=== PATIENT | female | born 1995 | race Caucasian/White ===

== ENCOUNTER 2017-08-31 08:08 | Inpatient (IN) | payer OTHER ==
--- NOTE | 2017-08-31 08:42 | PTEDU ---
Patient Name: MAGUE JANE MAGUE JANE selected video: Never Ever Shake a Baby to view on 08/31/2017 at 8:41:32 AM from [facility] [id number]
--- NOTE | 2017-08-31 08:45 | PTEDU ---
Patient Name: MAGUE JANE MAGUE JANE selected video: BBOB: Nurturing Your Gorgeous &Growing Baby by to view on 08/31/2017 at 8:44:12 AM [id number]
[2017-08-31] MEDS ORDERED: Misoprostol TAB* 100 MCG PO ONE (08:59)
[2017-08-31] MEDS ORDERED: Albuterol HFA INHALER* 8 gm MDI INH PRN (09:02)
--- NOTE | 2017-08-31 09:08 | HP ---
General Information - Reason for Visit Postdates induction of labor - General Information Maternal Age: 21 Grav: 3 Para: 0 SAB: 0 IEA: 0 Estimated Due Date: 08/23/17 Determined By: Early Ultrasound Gestational Age in Weeks/Days: 41-17 Maternal Blood Type and Rh: A Positive - Results this Serology/RPR Result: Non-Reactive Rubella Result: Immune HBsAg Result: Negative HIV Result: Negative GBS Culture Result: Negative Past Medical History Delivery History: See Records Delivery History Comment: 03/2011 IEA 09/2014 IEA Pertinent Past Medical History: See Records Past Medical History Comment: Hx asthma, mild exercise induced. Uses rescue inhaler PRN Pertinent Past Surgical History: None Pertinent Family History: See Records Family History Comment: Father: HTN PGF: , cancer MGM: asthma, COPD MGF: , unknown - Antepartal Records Antepartal Records: Reviewed, Uncomplicated Review of Systems Constitutional: Comfortable CV Complaint: No Respiratory: Shortness of Breath: No Gastrointestinal: No Nausea/Vomiting, Normal Bowel Movement Genitourinary: No Dysuria, No Bleeding, No Leaking Fluid Musculoskeletal: No Complaint Neurological: No Headache, No Visual Changes Movement: Normal Exam Allergies/Adverse Reactions: Allergies No Known Allergies Allergy (Verified 08/09/17 03:03) BP: 125/86 HR 87 T 98.4 RR 20 SpO2 98% on RA - Measurements Height: 4 ft 10 in Weight: 183 lb Body Mass Index (BMI): 38.2 Pre- Weight: 170 lb - Exam Breast: Breast Exam Deferred CVA: No CVA Tenderness Extremities: Edema - 1+ pedal edema bilaterally Heart: Normal Rhythm/Heart Sounds HEENT: No Significant Findings Lungs: Clear Bilaterally Rectal: Rectal Exam Deferred Reflexes: DTR 2+ Thyroid: No Thyromegaly - Abdominal Exam Abdomen Exam: Non-Tender - Ultrasound/Biophysical Profile Ultrasound Status: Not Done Targeted Exam Findings See L&D Outpatient Visit Provider Note for Findings: N/A Estimated Weight: 7.5lbs by Anne Cervical Exam: 3cm Effacement: 70% Station: -1 Presenting Part: Vertex Sterile Speculum Exam: not done Bleeding/Discharge: None EFM Findings - External Monitor Findings Baseline Heart Rate: 125 External Monitor Findings: Accelerations Present, No Pattern of Variable or Late Decelerations, Variability Moderate, Baseline Stable External Monitor Findings Comment: No evidence of metabolic acidemia Contractions: None Assessment/Plan - Assessment IUP at 41-1/7 weeks her for postdates induction of labor. Bishops Score 6 - Obstetrical Risk Factors Obstetrical Risk Factors: Post-Dates - Plan Plan: Induction Plan Comment: PARQ Oral misoprostol vs. IV pitocin. All ?s answered. Pt would like to start with oral misoprostol. May want pain medication in active labor so consents to IV placement now - Date/Time of Admission Date of Admission: 08/31/17 Time of Admission: 08:10
--- NOTE | 2017-08-31 09:14 | PTEDU ---
Patient Name: MAGUE JANE MAGUE JANE selected video: Follow Me Mum: The [facility] to Successful to view on 2017 at 9:14:11 AM from [id number]
[2017-08-31] MEDS ORDERED: Misoprostol TAB* 100 MCG ONE (09:18)
[2017-08-31 09:58] LABS: ABS Basophils 0 10^3/ul (0-0.2); ABS Eosinophils 0.1 10^3/ul (0-0.6); ABS Lymphocytes 2.4 10^3/ul (1.0-4.8); ABS Monocytes 0.8 10^3/ul (0-0.8); ABS Neutrophils 8.4 10^3/ul (1.5-7.7); ABS Nucleated RBC 0 10^3/ul; Eosinophil % 0.8 % (0-6); Hematocrit 37 % (35-47); Lymphocyte % 20.6 % (25-47); Mean Corpuscular HGB Conc 33 g/dl (31-36); Mean Corpuscular Hemoglobin 28 pg (27-31); Mean Corpuscular Volume 86 fL (80-97); Mean Platelet Volume 9.8 um3 (7.4-10.4); Nucleated Red Blood Cells % 0.1; Platelet Count 214 10^3/ul (150-450); Red Blood Count 4.25 10^6/ul (4.00-5.40); Red Cell Distribution Width 15 % (10.5-15); White Blood Count 11.8 10^3/ul (3.5-10.8)
--- NOTE | 2017-08-31 13:19 | PN ---
Progress Note - Progress Note Date of Service: 08/31/17 Note: S: Pt reports only rare menstrual like cramping. No strong UCs. No LOF. Reports active FM. O: BP 116/68 HR 85 T 98.2 RR 20 FHT 145bpm by intermittent doptones. No decels UCs mild, irregular. Pt to go on monitor now VE: 3-4/80%/vtx -1, intact A: IUP at 41-1/7 here for postdates IOL No evidence of metabolic acidemia P: Discussed repeat dose of cytotec vs. IV pitocin. Pt prefers trial of IV pitocin at this time. Plan to start at 6mu/min and increased by 2mu/min q 30 min per low dose protocol. Consider AROM with consistent UC pattern. Pt to request pain mgmt PRN.
[2017-08-31] MEDS ORDERED: Oxytocin in LR* 20 UNITS/1,000 ML BAG IVPB ONE (13:27)
[2017-08-31] MEDS ORDERED: Oxytocin in LR* 20 UNITS/1,000 ML BAG IVPB SCH (13:30)
--- NOTE | 2017-08-31 14:29 | PN ---
Progress Note - Progress Note Date of Service: 08/31/17 Note: S: Pt reports mild UCs, feeling more crampy than uncomfortable. O: VSS, afebrile FHT: 145bpm. Moderate variability. +Accels. No decels UCs q 2-4 VE: 3-4/80%/vtx -1 AROM clear fluid A: Postdates IOL at 41-1/7 No evidence of metabolic acidemia P: Continue IV pitocin
[2017-08-31] MEDS ORDERED: OBEPIDURAL* 250 ML EPIDURAL ONE (15:35)
[2017-08-31] MEDS ORDERED: Sodium Citrate/Citric Acid* 15 ML UDC PO PRN (16:19)
[2017-08-31] MEDS ORDERED: Phenylephrine IV* 40 MCG/ML 10 ML SYRINGE IV PUSH PRN ×2 (16:19)
[2017-08-31] MEDS ORDERED: Famotidine TAB* 20 MG PO PRN (16:19)
[2017-08-31] MEDS ORDERED: OBEPIDURAL* 250 ML EPIDURAL SCH (17:00)
--- NOTE | 2017-08-31 17:38 | PN ---
Progress Note - Progress Note Date of Service: 08/31/17 Note: S: Pt comfortable s/p CEI O: BP 111/77 HR 87 RR 20 T 99.2 FHT: 135bpm. Moderate variability. +Accels. Occ early type decel and variable with UCs. Immediately after CEI placement decels down to 80bpm resolved with IV fluids, maternal position changes, IV phenylephrine. UCs 2-4 VE: 5-6cm/80%/vtx -1, clear fluid A: IUP at 41-1/7 postdates IOL Category II FHT. Doubt metabolic acidemia. Variability maintained P: Close monitoring of maternal/ status. Continue IV pitocin. Encouraged rest.
[2017-08-31] MEDS ORDERED: ceFOXitin 2 GM IVPREMIX* 2 GM/50 ML BAG IVPB ONE (19:05)
[2017-08-31] MEDS ORDERED: ceFOXitin 2 GM IVPREMIX* 2 GM/50 ML BAG ONE (19:07)
--- NOTE | 2017-08-31 19:09 | PN ---
Progress Note - Progress Note Date of Service: 08/31/17 Note: S: Paged to bedside for FHT decel down to the 70's. Pt on right side. O2 by mask. IV fluids running. IV pitocin off O: VSS, afebrile FHT: Baseline 140bpm. Decel down to 70bpm x 6 min. Recovered. Minimal to moderate variability. Persistent late decels with UCs UCs q 4-5 min with IV pitocin off VE: unchanged. FSE applied A: Category II FHT remote from delivery P: Counseled for pLTCS and all questions answered. Dr. Hill, Dr. Montano and neonatology paged. Staff to prep OR.
[2017-08-31] MEDS ORDERED: Dexamethasone IV* 4 MG/ML 1 ML (4 MG) ONE (19:20)
[2017-08-31] MEDS ORDERED: OXYTOCIN* 10 UNITS/ML 1 ML VIAL ONE (19:20)
[2017-08-31] MEDS ORDERED: Ondansetron INJ* 2 MG/ML VIAL ONE (19:20)
[2017-08-31] MEDS ORDERED: Morphine PF AMP (0.5MG/ML)* 5 MG/10 ML AMP ONE (19:51)
[2017-08-31] MEDS ORDERED: Phenylephrine IV* 40 MCG/ML 10 ML SYRINGE ONE (20:02)
[2017-08-31] MEDS ORDERED: Acetaminophen IV 1GM/100ML * 1,000 MG/100 ML VIAL IVPB ONE (20:04)
[2017-08-31] MEDS ORDERED: oxyCODONE TAB* 5 MG TAB PO PRN ×2 (20:04→20:23)
[2017-08-31] MEDS ORDERED: Naloxone* 0.4 MG/ML 1 ML VIAL IV PRN ×2 (20:04→20:23)
[2017-08-31] MEDS ORDERED: PROCHLORPERAZINE INJ 5 MG/ML 2 ML VIAL IV PRN (20:04)
[2017-08-31] MEDS ORDERED: fentaNYL* 50 MCG/ML 2 ML VIAL (100 MCG VIAL) IV PRN (20:04)
[2017-08-31] MEDS ORDERED: Nalbuphine* 10 MG/ML 1 ML VIAL IV PRN (20:23)
[2017-08-31] MEDS ORDERED: Ondansetron INJ* 2 MG/ML VIAL IV PRN (20:23)
[2017-08-31] MEDS ORDERED: DiMENhydriNATE IV* 50 MG/ML VIAL IV PUSH PRN (20:23)
[2017-08-31] MEDS ORDERED: Scopolamine 1.5 mg* PATCH TRANSDERM PRN (20:23)
[2017-08-31] MEDS ORDERED: Ketorolac INJ* 30 MG/ML 1 ML VIAL IV ONE (21:00)
[2017-09-01] MEDS: Ketorolac INJ* 30 MG/ML 1 ML VIAL IV SCH ×3 (03:14→13:36)
[2017-09-01] MEDS ORDERED: Phenylephrine INJ* 10 MG/ML 1 ML VIAL (10 MG) ONE (03:21)
[2017-09-01 07:20] LABS: ABS Basophils 0.1 10^3/ul (0-0.2); ABS Eosinophils 0 10^3/ul (0-0.6); ABS Lymphocytes 1.5 10^3/ul (1.0-4.8); ABS Monocytes 1.1 10^3/ul (0-0.8); ABS Neutrophils 15.8 10^3/ul (1.5-7.7); ABS Nucleated RBC 0 10^3/ul; Eosinophil % 0 % (0-6); Hematocrit 31 % (35-47); Hemoglobin 10.5 g/dl (12.0-16.0); Lymphocyte % 8.3 % (25-47); Mean Corpuscular HGB Conc 34 g/dl (31-36); Mean Corpuscular Hemoglobin 29 pg (27-31); Mean Corpuscular Volume 86 fL (80-97); Mean Platelet Volume 9.5 um3 (7.4-10.4); Nucleated Red Blood Cells % 0; Platelet Count 200 10^3/ul (150-450); Red Blood Count 3.62 10^6/ul (4.00-5.40); Red Cell Distribution Width 15 % (10.5-15); White Blood Count 18.5 10^3/ul (3.5-10.8)
[2017-09-01] MEDS ORDERED: Witch Hazel PAD* JAR TOPICAL PRN (07:30)
[2017-09-01] MEDS ORDERED: Dibucaine 1% 28.35 GM TUBE PR PRN (07:30)
[2017-09-01] MEDS ORDERED: Acetaminophen TAB* 325 MG PO PRN (07:30)
[2017-09-01] MEDS ORDERED: Glycerin ADULT SUPP PR PRN (07:30)
[2017-09-01] MEDS: Docusate CAP* 100 MG PO SCH ×3 (08:43→20:41)
[2017-09-01] MEDS: Simethicone TAB* 80 MG TAB.CHEW PO SCH ×4 (08:43→20:41)
--- NOTE | 2017-09-01 10:28 | OP ---
DATE OF OPERATION: 08/31/17 - ROOM #104 DATE OF : [birth year] SURGEON: Erlinda Hill MD RECYCLABLE PRODUCTS SORTER: Patsy Mena CNM PRE-OP DIAGNOSIS: Category 2 heart tracing, 41-1/7 weeks. POST-OP DIAGNOSIS: Category 2 heart tracing, 41-1/7 weeks. OPERATIVE PROCEDURE: Primary low transverse section. ESTIMATED BLOOD LOSS: 600. URINE OUTPUT: 250 cc of clear yellow urine. FLUIDS: 2000 cc of crystalloid. FINDINGS: Revealed a vertex male with Apgars 9 at 1 minute, 9 at 5 minutes, weight was 7 pounds 8 ounces. Normal-appearing tubes and ovaries bilaterally. Normal-appearing placenta, 3-vessel cord, spontaneous delivery, intact uterine cavity without evidence of retained membranes of profound tissue. COMPLICATIONS: None apparent. DISPOSITION: Stable to recovery room. DESCRIPTION OF PROCEDURE: The patient was placed in dorsal lithotomy position. The abdomen was prepped and draped in a sterile standard fashion. The anesthesia was tested to appropriate level. Incision was made 2 fingerbreadths above the pubic symphysis. This was carried down through the fascia. Fascia was scoured in the midline and extended bilaterally using curved Ramirez scissors. The peritoneum was then entered bluntly and peritoneal incision was extended bluntly. The bladder blade was inserted. Lower uterine segment was identified, tented up with an Allis. Incision was made with scalpel, this was carried down through membranes. The incision was extended laterally and superiorly using bandage scissors. Clear fluid was noted. The was delivered vertex, no nuchal cord. No meconium. The cord was allowed to pulse for 60 seconds before clamping. The cord was doubly clamped, cut and the was handed off to awaiting wire mesh knitter. Appropriate cord blood was then obtained. The placenta was allowed to deliver spontaneously. Uterus was exteriorized, wrapped in warm moist laparotomy sponge. The uterine cavity was explored and noted to be free of any membranes or placental tissue. Uterine incision itself was reapproximated in two layers, first layer running locked, second layer running imbricated 0 Vicryl. The uterus was returned intraabdominally. Colic gutters were lavaged. Hemostasis was assured at the hysterotomy site. The peritoneum was reapproximated using 3-0 Vicryl in a running fashion. Subfascial area was visualized and noted to be hemostatic. Fascia was reapproximated using 0 Vicryl x2 in a running fashion. Subcu was lavaged, hemostasis assured, Bovie coagulation, and the subcuticular Camper's fascia was reapproximated using 3-0 Vicryl in an interrupted fashion for complete reapproximation and closure of the space. The skin was reapproximated with 4-0 Monocryl in a subcuticular fashion. Mastisol and Steri-Strips applied. All sponge, needle, instrument, and blade counts were correct throughout the case. The patient tolerated the procedure well. [id number]/[facility] #: [id number] [facility]ITAL[facility]
[2017-09-01] MEDS ORDERED: oxyCODONE/Acetamin 5/325 MG* TAB PO PRN (12:30)
[2017-09-01] MEDS: Ibuprofen TAB* 600 MG PO PRN ×2 (13:40→20:41)
[2017-09-01] MEDS: oxyCODONE/Acetamin 5/325 MG* TAB PO PRN (20:41)
[2017-09-02] MEDS: oxyCODONE/Acetamin 5/325 MG* TAB PO PRN ×3 (01:15→20:54)
[2017-09-02 07:42] LABS: ABS Basophils 0.1 10^3/ul (0-0.2); ABS Eosinophils 0.2 10^3/ul (0-0.6); ABS Lymphocytes 3.8 10^3/ul (1.0-4.8); ABS Monocytes 0.9 10^3/ul (0-0.8); ABS Nucleated RBC 0 10^3/ul; Eosinophil % 1.2 % (0-6); Hematocrit 28 % (35-47); Hemoglobin 9.2 g/dl (12.0-16.0); Lymphocyte % 29.5 % (25-47); Mean Corpuscular HGB Conc 33 g/dl (31-36); Mean Corpuscular Hemoglobin 29 pg (27-31); Mean Corpuscular Volume 86 fL (80-97); Mean Platelet Volume 9.7 um3 (7.4-10.4); Nucleated Red Blood Cells % 0; Platelet Count 179 10^3/ul (150-450); Red Blood Count 3.23 10^6/ul (4.00-5.40); Red Cell Distribution Width 15 % (10.5-15); White Blood Count 12.9 10^3/ul (3.5-10.8)
[2017-09-02] MEDS: Ibuprofen TAB* 600 MG PO PRN ×3 (07:45→20:50)
[2017-09-02] MEDS: Simethicone TAB* 80 MG TAB.CHEW PO SCH ×4 (08:45→20:50)
[2017-09-02] MEDS: Docusate CAP* 100 MG PO SCH ×3 (08:45→20:50)
[2017-09-02] MEDS ORDERED: Ferrous Gluconate TAB* 324 MG TAB PO SCH (09:00)
[2017-09-03] MEDS: Ibuprofen TAB* 600 MG PO PRN ×2 (03:13→09:20)
[2017-09-03] MEDS: oxyCODONE/Acetamin 5/325 MG* TAB PO PRN ×2 (03:13→07:55)
[2017-09-03] MEDS: Simethicone TAB* 80 MG TAB.CHEW PO SCH (07:56)
[2017-09-03] MEDS: Docusate CAP* 100 MG PO SCH (07:56)
[2017-09-03 08:12] VITALS: BP 113/62
[2017-09-03] MEDS ORDERED: Ferrous Gluconate TAB* 324 MG TAB PO SCH (09:00)
[2017-09-03] MEDS ORDERED: Scopolamine PATCH Remove* 1 NOTE MISC PATCH OFF PRN (20:24)
== END 2017-09-03 14:28 | disposition home or self-care (01) | DRG 540 ==
LOC: MCHOBOUT 08:08 → MCHOB 08:11
PROVIDERS: ADMIT Midwife; ATTEND Midwife
PROC: 10D00Z1 Extraction of Products of Conception, Low, Open Approach (ICD-10-PCS; 2017-08-31)
PROC: 4A1HXCZ Monitoring of Products of Conception, Cardiac Rate, External Approach (ICD-10-PCS; 2017-08-31)
PROC: 4A1H7CZ Monitoring of Products of Conception, Cardiac Rate, Via Natural or Artificial Opening (ICD-10-PCS; 2017-08-31)
PROC: 10H073Z Insertion of Monitoring Electrode into Products of Conception, Via Natural or Artificial Opening (ICD-10-PCS; 2017-08-31)
PROC: 10907ZC Drainage of Amniotic Fluid, Therapeutic from Products of Conception, Via Natural or Artificial Opening (ICD-10-PCS; principal; 2017-08-31 19:31)
DX: O48.0 Post-term pregnancy (principal); O99.52 Diseases of the respiratory system complicating childbirth; J45.990 Exercise induced bronchospasm; Z82.49 Family history of ischemic heart disease and other diseases of the circulatory system; Z80.9 Family history of malignant neoplasm, unspecified; Z82.5 Family history of asthma and other chronic lower respiratory diseases; Z3A.41 41 weeks gestation of pregnancy; Z37.0 Single live birth; O90.81 Anemia of the puerperium; O76 Abnormality in fetal heart rate and rhythm complicating labor and delivery; O99.214 Obesity complicating childbirth; Z68.38 Body mass index [BMI] 38.0-38.9, adult
CPT/HCPCS: 36415; 85025; 86850; 86900; 86901; A9270-GY; J0694; J1100; J1885; J2405; J2590; S0191

== ENCOUNTER 2018-06-01 11:23 | Emergency (ER) | payer OTHER ==
[2018-06-01 11:43] VITALS: BP 114/70
--- NOTE | 2018-06-01 11:53 | UC ---
Throat Pain/Nasal Enio HPI - HPI Summary HPI Summary: 22 yo female presents with 2 days of fatigue, body aches, sore throat, dry cough , and runny nose. She has been taking tylenol for her symptoms with mild relief. She is currently her 9month old son. She tells me that her son and her were recently dx'd with the flu and she thinks she may have it. Denies fever, SOB, chest pain, n/v/d/c, abdominal pain - History of Current Complaint Chief Complaint: UCRespiratory Stated Complaint: CONGESTION RASH Time Seen by Provider: 06/01/18 11:53 Hx Obtained From: Patient Hx Last Menstrual Period: 2 months (she states she has irregular periods) Onset/Duration: Sudden Onset Severity: Moderate Pain Intensity: 6 Pain Scale Used: 0-10 Numeric - Allergies/Home Medications Allergies/Adverse Reactions: Allergies Allergy/AdvReac Type Severity Reaction Status Date / Time No Known Allergies Allergy Verified 06/01/18 11:43 PMH/Surg Hx/FS Hx/Imm Hx Respiratory History: Asthma - Surgical History Surgical History: None - Family History Known Family History: Positive: None - Social History Occupation: Employed Full-time Lives: With Family Alcohol Use: None Substance Use Type: None Smoking Status (MU): Never Smoked Tobacco - Immunization History Most Recent Influenza Vaccination: declined Most Recent Tetanus Shot: up to date Most Recent Pneumonia Vaccination: none Review of Systems All Other Systems Reviewed And Are Negative: Yes Constitutional: Positive: Fatigue, Other - Body aches Skin: Positive: Rash - chest Eyes: Positive: Negative ENT: Positive: Sore Throat, Nasal Discharge Respiratory: Positive: Cough Cardiovascular: Positive: Negative Gastrointestinal: Positive: Negative Genitourinary: Positive: Negative Neurovascular: Positive: Negative Neurological: Positive: Negative Psychological: Positive: Negative Physical Exam - Summary Physical Exam Summary: GENERAL: NAD. WDWN. No pain distress. SKIN: No rashes, sores, lesions, or open wounds. HEENT: Head: AT/NC Eyes: EOM intact. Conjunctiva clear without inflammation or discharge. Ears: Hearing grossly normal. TMs intact, no bulging, erythema, or edema. Nose: Nasal mucosa pink and moist. NTTP maxillary and frontal sinus. Throat: Posterior oropharynx without exudates, erythema, or tonsillar enlargement. Uvula midline. NECK: Supple. Nontender. No lymphadenopathy. CHEST: CTAB. No r/r/w. No accessory muscle use. Breathing comfortably and in no distress. CV: RRR. Without m/r/g. Pulses intact. Cap refill <2seconds NEURO: Alert. PSYCH: Age appropriate behavior. Triage Information Reviewed: Yes Vital Signs: Initial Vital Signs Temp 98.4 F 06/01/18 11:40 Pulse 101 06/01/18 11:40 Resp 18 06/01/18 11:40 BP 114/70 06/01/18 11:40 Pulse Ox 99 06/01/18 11:40 Laboratory Tests 06/01/18 12:03 Influenza A (Rapid) Negative Influenza B (Rapid) Negative Vital Signs Reviewed: Yes Throat Pain/Nasal Course/Dx - Course Course Of Treatment: POC flu negative. Suspect viral illness. Advised to continue tylenol/ibuprofen for discomfort and f/u if symptoms do not improve - Differential Dx/Diagnosis Provider Diagnosis: Viral syndrome Discharge - Sign-Out/Discharge Documenting (check all that apply): Patient Departure All imaging exams completed and their final reports reviewed: No Studies - Discharge Plan Condition: Stable Disposition: HOME Patient Education Materials: Viral Syndrome (ED) Forms: *Work Release Referrals: Evan CRUZ,Tres Robles [Primary Care Provider] - Additional Instructions: If you develop a fever, shortness of breath, chest pain, new or worsening symptoms - please call your PCP or go to the ED. 1) Continue tylenol/ibuprofen for your discomfort and be rechecked if your symptoms do not improve - Billing Disposition and Condition Condition: STABLE Disposition: Home
[2018-06-01 12:15] LABS: Influenza A Molecular NEGATIVE (Negative); Influenza B Molecular NEGATIVE (Negative)
== END 2018-06-01 12:19 | disposition home or self-care (01) ==
LOC: UCEAST 11:23
DX: B34.9 Viral infection, unspecified (principal); R21 Rash and other nonspecific skin eruption; J45.909 Unspecified asthma, uncomplicated
CPT/HCPCS: 99211; G0463

== ENCOUNTER 2018-08-05 20:54 | Emergency (ER) | payer SELFPAY ==
--- NOTE | 2018-08-05 20:56 | UC ---
Back Pain HPI - HPI Summary HPI Summary: 22 yo female presents with back pain. She tells me that this morning she bent down to pick something up off the floor and as she was returning to a standing position she felt a pull in her mid back. Has had discomfort in this area since that time that is worse with movement. She has not taken anything OTC for her discomfort. No radiation of pain. No numbness, tingling, saddle anesthesia, loss of bowel/bladder control, or dysuria. - History of Current Complaint Stated Complaint: BACK INJURY Time Seen by Provider: 08/05/18 20:55 Hx Obtained From: Patient Hx Last Menstrual Period: 2 months (she states she has irregular periods) Onset/Duration: Sudden Onset Severity Initially: Moderate Severity Currently: Moderate Pain Intensity: 5 Pain Scale Used: 0-10 Numeric - Allergies/Home Medications Allergies/Adverse Reactions: Allergies Allergy/AdvReac Type Severity Reaction Status Date / Time No Known Allergies Allergy Verified 08/05/18 21:06 PMH/Surg Hx/FS Hx/Imm Hx Respiratory History: Asthma - Surgical History Surgical History: None - Family History Known Family History: Positive: None - Social History Lives: With Family Alcohol Use: None Substance Use Type: None Smoking Status (MU): Never Smoked Tobacco - Immunization History Most Recent Influenza Vaccination: declined Most Recent Tetanus Shot: up to date Most Recent Pneumonia Vaccination: none Review of Systems All Other Systems Reviewed And Are Negative: Yes Constitutional: Positive: Negative Skin: Positive: Negative Respiratory: Positive: Negative Cardiovascular: Positive: Negative Neurovascular: Positive: Negative Musculoskeletal: Positive: Other: - Back pain Neurological: Positive: Negative Psychological: Positive: Negative Physical Exam - Summary Physical Exam Summary: GENERAL: NAD. WDWN. No pain distress. SKIN: No rashes, sores, lesions, or open wounds. NECK: Supple. FROM. Nontender. No lymphadenopathy. CHEST: CTAB. No r/r/w. No accessory muscle use. Breathing comfortably and in no distress. CV: RRR. Without m/r/g. Pulses intact. Cap refill <2seconds MSK: TTP over thoracic paraspinal muscles. Pain reproduced with b/l arm flexion and with flexion of spine. No vertebral tenderness. No lumbar spine tenderness. Strength 5/5 B/L UEs NEURO: Alert. Sensations intact B/L UEs C4-T1. Reflexes intact PSYCH: Age appropriate behavior. Triage Information Reviewed: Yes Vital Signs: Vital Signs: Temp Pulse Resp BP Pulse Ox 98.1 F 97 16 134/67 98 08/05/18 21:01 08/05/18 21:01 08/05/18 21:01 08/05/18 21:01 08/05/18 21:01 Vital Signs Reviewed: Yes Back Pain Course/Dx - Course Course Of Treatment: Suspect muscle strain/spasm of mid back. In the clinic she was given toradol IM for her discomfort and was dispense flexeril to take tonight when she gets home. Rx for flexeril. Advised to rest and apply heat to reduce pain. Practice gentle range of motion to loosen the muscles. - Differential Dx/Diagnosis Provider Diagnosis: Muscle strain of upper back Discharge - Sign-Out/Discharge Documenting (check all that apply): Patient Departure All imaging exams completed and their final reports reviewed: No Studies - Discharge Plan Condition: Stable Disposition: HOME Prescriptions: Cyclobenzaprine TAB* [Flexeril 10 MG TAB*] 10 mg PO TID PRN #15 tab PRN Reason: Pain Patient Education Materials: Muscle Strain (ED), Muscle Spasm (ED) Forms: *Work Release Referrals: Tres Godron PA [Primary Care Provider] - Additional Instructions: If you develop a fever, shortness of breath, chest pain, new or worsening symptoms - please call your PCP or go to the ED immediately. 1) Rest and apply heat to your back to reduce pain 2) Practice gentle range of motion to keep the muscles loose 3) May take tylenol or ibuprofen starting tomorrow as directed for discomfort - Billing Disposition and Condition Condition: STABLE Disposition: Home
[2018-08-05 21:06] VITALS: BP 134/67
[2018-08-05] MEDS ORDERED: Cyclobenzaprine TAB* 10 MG PO ONE (21:13)
[2018-08-05] MEDS ORDERED: Ketorolac INJ* 60 MG/2 ML VIAL IM ONE (21:13)
== END 2018-08-05 21:31 | disposition home or self-care (01) ==
LOC: UCEAST 20:54
DX: S29.012A Strain of muscle and tendon of back wall of thorax, initial encounter (principal); X50.0XXA Overexertion from strenuous movement or load, initial encounter; Y92.9 Unspecified place or not applicable
CPT/HCPCS: 96372; 99212; A9270-GY; G0463; J1885

== ENCOUNTER 2019-03-27 17:25 | Emergency (ER) | payer OTHER ==
[2019-03-27 17:31] VITALS: BP 112/70
[2019-03-27] MEDS ORDERED: Tetracaine 0.5% OPTH.SOL 4 ML* 1 DROP BTL RIGHT EYE ONE (17:57)
[2019-03-27] MEDS ORDERED: Fluorescein Sodium TOPICAL* 1 MG TEST STRIP OPHTHALMIC ONE (17:58)
[2019-03-27] MEDS ORDERED: Erythromycin OPTH OINT* APPLIC OINT RIGHT EYE ONE (18:27)
--- NOTE | 2019-03-27 18:35 | UC ---
Eye Complaint HPI - HPI Summary HPI Summary: THIS AFTERNOON. HER EYE IS WATERING AND SHE HAS PAIN AND FOREIGN BODY SENSATION. DOES NOT WEAR CONTACTS. - History of Current Complaint Chief Complaint: UCEye Stated Complaint: EYE INJURY Time Seen by Provider: 03/27/19 17:56 Hx Obtained From: Patient Hx Last Menstrual Period: 3 years ago Onset/Duration: Sudden Onset, Lasting Hours, Still Present Timing: Constant Severity Initially: Moderate Severity Currently: Moderate Pain Intensity: 8 Pain Scale Used: 0-10 Numeric Character: Foreign Body Sensation Aggravating Factor(s): Blinking Alleviating Factor(s): Nothing Associated Signs And Symptoms: Positive: Photophobia, Drainage (Clear) - Allergies/Home Medications Allergies/Adverse Reactions: Allergies Allergy/AdvReac Type Severity Reaction Status Date / Time No Known Allergies Allergy Verified 03/27/19 17:32 PMH/Surg Hx/FS Hx/Imm Hx Previously Healthy: Yes - Surgical History Surgical History: Yes Surgery Procedure, Year, and Place: C SECTION - Family History Known Family History: Positive: Cardiac Disease - Social History Alcohol Use: None Substance Use Type: None Smoking Status (MU): Never Smoked Tobacco Have You Smoked in the Last Year: No - Immunization History Most Recent Influenza Vaccination: declined Most Recent Tetanus Shot: 2019 Most Recent Pneumonia Vaccination: none Review of Systems All Other Systems Reviewed And Are Negative: Yes Constitutional: Positive: Negative Skin: Positive: Negative Eyes: Positive: Blurred Vision, Drainage, Photophobia Respiratory: Positive: Negative Cardiovascular: Positive: Negative Gastrointestinal: Positive: Negative Physical Exam Triage Information Reviewed: Yes Appearance: Well-Appearing, No Pain Distress, Well-Nourished Vital Signs: Initial Vital Signs Temp 98.3 F 03/27/19 17:29 Pulse 102 03/27/19 17:29 Resp 12 03/27/19 17:29 BP 112/70 03/27/19 17:29 Pulse Ox 99 03/27/19 17:29 Vital Signs Reviewed: Yes Eyes: Positive: Conjunctiva Clear, Discharge - CLEAR DRAINAGE, Other: - PERRL, EOMI. FLUORESCEIN UPTAKE CENTRAL CORNEA ENT: Positive: Hearing grossly normal Neck: Positive: Supple Respiratory: Positive: No respiratory distress, No accessory muscle use Cardiovascular: Positive: Pulses Normal Abdomen Description: Positive: Soft Musculoskeletal: Positive: No Edema Neurological: Positive: Alert Psychological: Positive: Age Appropriate Behavior Skin: Negative: Rashes Eye Complaint Course/Dx - Course Course Of Treatment: ERYTHROMYCIN OPHTHALMIC OINTMENT 4 TIMES DAILY FOR A WEEK. FOLLOW-UP WITH OPHTHALMOLOGY IF SYMPTOMS NOT IMPROVING OVER THE NEXT COUPLE OF DAYS. - Differential Dx/Diagnosis Provider Diagnosis: Right corneal abrasion Discharge ED - Sign-Out/Discharge Documenting (check all that apply): Patient Departure All imaging exams completed and their final reports reviewed: No Studies - Discharge Plan Condition: Stable Disposition: HOME Prescriptions: Erythromycin OPHTH.OINT* [Ilotycin OPHTH.OINT*] 1 applic RIGHT EYE QID #1 tube Patient Education Materials: Corneal Abrasion (ED) Referrals: Tres Gordon PA [Primary Care Provider] - If Needed Yung Sheldon MD [Medical Doctor] - Additional Instructions: APPLY ANTIBIOTIC OINTMENT TO YOUR LOWER LID AND BLINK IN 4 TIMES DAILY FOR A WEEK. IF YOUR SYMPTOMS ARE NOT IMPROVING OVER THE NEXT FEW DAYS FOLLOW-UP WITH AN EYE DOCTOR. AVOID EYE MAKEUP UNTIL SYMPTOMS ARE RESOLVED. - Billing Disposition and Condition Condition: STABLE Disposition: Home
== END 2019-03-27 18:40 | disposition home or self-care (01) ==
LOC: UCEAST 17:25
DX: S05.01XA Injury of conjunctiva and corneal abrasion without foreign body, right eye, initial encounter (principal); X58.XXXA Exposure to other specified factors, initial encounter; Y92.9 Unspecified place or not applicable
CPT/HCPCS: 99212; A9270-GY; G0463

== ENCOUNTER 2019-04-08 05:45 | Inpatient (IN) | payer OTHER ==
[2019-04-08] MEDS ORDERED: Buffered Lidocaine 1% SYRIN* 1 ML/SYRINGE INTRADERM ONE (06:00)
[2019-04-08] MEDS ORDERED: Sodium Citrate/Citric Acid* 15 ML UDC PO ONE (06:00)
[2019-04-08] MEDS ORDERED: Lactated Ringers 1000 ML Bag* 1,000 ML IV SCH ×2 (06:00→11:00)
[2019-04-08] MEDS ORDERED: ceFOXitin 2 GM IVPREMIX* 2 GM/50 ML BAG IVPB ONE (06:30)
[2019-04-08 07:28] LABS: Urine Benzodiazepine Screen None Detected (None Detect); Urine Buprenorphine Screen None Detected (None Detect); Urine Hydrocodone Screen None Detected (None Detect); Urine Opiates Screen None Detected (None Detect)
[2019-04-08] MEDS ORDERED: Morphine PF AMP (0.5MG/ML)* 5 MG/10 ML AMP ONE (07:28)
[2019-04-08] MEDS ORDERED: Lidocaine 1% MPF ** 5 ML VIAL ONE (07:32)
[2019-04-08] MEDS ORDERED: fentaNYL* 50 MCG/ML 2 ML VIAL (100 MCG VIAL) IV PRN (07:41)
[2019-04-08] MEDS ORDERED: Naloxone* 0.4 MG/ML 1 ML VIAL IV PRN ×2 (07:41→08:48)
[2019-04-08] MEDS ORDERED: Scopolamine 1.5 mg* PATCH TRANSDERM SCH (08:00)
[2019-04-08] MEDS ORDERED: OXYTOCIN* 10 UNITS/ML 1 ML VIAL ONE ×2 (08:19→09:06)
[2019-04-08] MEDS ORDERED: Phenylephrine 40 MCG/ML SYRINGE ONE (08:19)
[2019-04-08] MEDS ORDERED: Ondansetron INJ* 2 MG/ML VIAL ONE (08:19)
[2019-04-08] MEDS ORDERED: oxyCODONE/Acetamin 5/325 MG* TAB PO PRN ×2 (08:48)
[2019-04-08] MEDS ORDERED: Ondansetron INJ* 2 MG/ML VIAL IV PRN (08:48)
[2019-04-08] MEDS ORDERED: Nalbuphine* 10 MG/ML 1 ML VIAL IV PRN (08:48)
[2019-04-08] MEDS ORDERED: EPHEDrine (Pressors)* 50 MG/ML VIAL ONE (09:01)
[2019-04-08] MEDS ORDERED: Witch Hazel PAD* JAR TOPICAL PRN (10:29)
[2019-04-08] MEDS: Ketorolac INJ* 30 MG/ML 1 ML VIAL IV PRN ×3 (11:21→23:34)
[2019-04-08] MEDS: Docusate CAP* 100 MG PO SCH ×2 (15:46→22:03)
[2019-04-08] MEDS: Nystatin TOP POWDER* 15 GM BTL TOPICAL PRN ×2 (15:46→22:03)
[2019-04-08] MEDS: Simethicone TAB* 80 MG TAB.CHEW PO SCH ×3 (15:46→22:03)
--- NOTE | 2019-04-08 23:39 | OP ---
DATE OF OPERATION: 04/08/19 - ROOM #101 DATE OF : [birth year] SURGEON: Harley Boucher MD EDGING MACHINE OPERATOR: Dixie Wooten CNM ANESTHESIOLOGIST: Dr. Greer. ANESTHESIA: Spinal. PRE-OP DIAGNOSES: Thirty-nine weeks gestation with history of previous C- section. POST-OP DIAGNOSES: Thirty-nine weeks gestation with history of previous C- section. OPERATIVE PROCEDURE: Repeat low transverse section. MATERIALS TO LAB: Cord blood. ESTIMATED BLOOD LOSS: 600 cc. URINE OUTPUT: 300 cc. IV FLUIDS: 2400 cc lactated Ringer's INDICATIONS: This patient is a 23-year-old 2, para 1, at 39 weeks gestation. The patient had a history of a prior section and desired a repeat today. Her was otherwise uncomplicated. She was extensively counseled and consent was signed. FINDINGS: Normal-appearing uterus, fallopian tubes, and ovaries. Delivery is productive of a female weighing 6 pounds 12 ounces with Apgars of 8 and 8. Time of delivery was 08:41. COMPLICATIONS: None. DESCRIPTION OF PROCEDURE: The risks, benefits, and alternatives were described to the patient, and informed consent was obtained. The patient was taken to the operating room with IV running, where spinal anesthesia was induced and found to be adequate. The patient was prepped and draped in normal sterile fashion in the dorsal supine position with a leftward tilt. A Pfannenstiel skin incision was made with a scalpel through the patient's previous incision. This was carried down to the underlying fascia using the scalpel. The fascia was scored in the midline, and the incision was extended using Ramirez scissors. The fascia was dissected off the underlying rectus muscles using blunt and sharp dissection. The rectus muscles were in the midline using dissection with a Edelmira clamp. The peritoneum was then entered bluntly. A bladder blade was placed. A bladder flap was created sharply using Metzenbaum scissors. A low transverse uterine incision was then made with the scalpel. This was carried down to the amniotic membranes. The membranes were then ruptured, productive of clear fluid. The uterine incision was extended using blunt traction. The head was elevated to the level of the incision, and, with fundal pressure, the head delivered without difficulty. The shoulders then were also both delivered and the body followed. The had excellent tone and cried immediately on delivery. The cord was doubly clamped and cut. The was then handed to the awaiting billboard poster helper. Cord blood was collected. The placenta was delivered with manual extraction. The uterus was then exteriorized and cleared of all clots and debris. The uterine incision was then reapproximated using 0 Polysorb in a running-locked fashion. A second layer of imbricating 0 Polysorb sutures was then also placed for good hemostasis. The posterior cul-de-sac was irrigated with saline. The uterus was then returned to the abdomen. The incision was reinspected and still noted to be hemostatic. The peritoneum was closed with 2-0 chromic in a running fashion. The fascia was closed with 0 Polysorb in a running fashion. The subcutaneous tissues were copiously irrigated and made hemostatic using the Bovie. The subcutaneous tissues were then reapproximated using 2-0 chromic in interrupted sutures. The skin was then closed with . A sterile bandage was then placed over the incision. The patient tolerated the procedure well. Sponge, lap, and needle counts were correct x2. [id number]/[facility] #: [id number] [facility]
[2019-04-09] MEDS ORDERED: oxyCODONE TAB* 5 MG TAB PO PRN
[2019-04-09] MEDS: Ketorolac INJ* 30 MG/ML 1 ML VIAL IV PRN (05:51)
[2019-04-09 06:39] LABS: ABS Eosinophils 0.1 10^3/ul (0-0.6); ABS Lymphocytes 2.2 10^3/ul (1.0-4.8); ABS Monocytes 1.2 10^3/ul (0-0.8); ABS Neutrophils 8.2 10^3/ul (1.5-7.7); Eosinophil % 0.9 %; Hematocrit 27 % (35-47); Lymphocyte % 18.6 %; Mean Corpuscular HGB Conc 33 g/dL (31-36); Mean Corpuscular Hemoglobin 27 pg (27-31); Mean Corpuscular Volume 82 fL (80-97); Mean Platelet Volume 8.9 fL (7.4-10.4); Platelet Count 170 10^3/uL (150-450); Red Blood Count 3.34 10^6 /uL (3.70-4.87); Red Cell Distribution Width 15 % (10-15); White Blood Count 11.7 10^3/uL (3.5-10.8)
[2019-04-09] MEDS ORDERED: Acetaminophen TAB* 325 MG ONE (08:30)
[2019-04-09] MEDS: Ferrous Gluconate TAB* 324 MG TAB PO SCH (08:31)
[2019-04-09] MEDS: Docusate CAP* 100 MG PO SCH ×3 (08:32→20:03)
[2019-04-09] MEDS: Simethicone TAB* 80 MG TAB.CHEW PO SCH ×4 (08:32→20:03)
[2019-04-09] MEDS: Ibuprofen TAB* 600 MG PO SCH ×2 (08:32→18:38)
[2019-04-09] MEDS: Acetaminophen TAB* 325 MG PO PRN ×3 (08:32→20:04)
[2019-04-09] MEDS: oxyCODONE TAB* 5 MG TAB PO PRN ×3 (08:32→20:04)
[2019-04-10] MEDS: Ibuprofen TAB* 600 MG PO SCH ×3 (00:42→13:06)
[2019-04-10] MEDS: Acetaminophen TAB* 325 MG PO PRN ×2 (06:28→11:18)
[2019-04-10 07:33] VITALS: BP 113/55
[2019-04-10] MEDS: Ferrous Gluconate TAB* 324 MG TAB PO SCH (08:21)
[2019-04-10] MEDS: Simethicone TAB* 80 MG TAB.CHEW PO SCH ×2 (08:21→13:06)
[2019-04-10] MEDS: oxyCODONE TAB* 5 MG TAB PO PRN ×2 (08:22→13:21)
[2019-04-10] MEDS: Docusate CAP* 100 MG PO SCH (08:22)
[2019-04-11] MEDS ORDERED: Scopolamine PATCH Remove* 1 NOTE MISC PATCH OFF SCH (08:00)
== END 2019-04-10 13:33 | disposition home or self-care (01) | DRG 540 ==
LOC: MCHOB 05:45
PROVIDERS: ADMIT Obstetrics & Gynecology; ATTEND Obstetrics & Gynecology
PROC: 10D00Z1 Extraction of Products of Conception, Low, Open Approach (ICD-10-PCS; principal; 2019-04-08 07:45)
DX: O34.211 Maternal care for low transverse scar from previous cesarean delivery (principal); O99.52 Diseases of the respiratory system complicating childbirth; J45.909 Unspecified asthma, uncomplicated; Z3A.39 39 weeks gestation of pregnancy; Z37.0 Single live birth
CPT/HCPCS: 36415; 80307; 85025; A9270-GY; G0480; J0694; J1885; J2405; J2590

== ENCOUNTER 2019-04-26 21:51 | Emergency (ER) | payer OTHER ==
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
--- NOTE | 2019-04-26 22:15 | ED ---
GI/ HPI - HPI Summary HPI Summary: Patient with history of by Dr Boucher (PRESS SET UP PERSON [facility]) 17 days ago complains of severe intermittent abdominal cramping and heavy vaginal bleeding 2 days. Abdominal pain described from mid umbilical area radiating down to lower abdomen. Pain described as sharp cramps that lasts for seconds, then completely resolve for about 5-10 minutes, then recur. Pain worse with movement. Not worse with urinating, bowel movement or eating. Patient states use of one pad per 2 hours with bright red and brown blood. Patient evaluated by PRESS SET UP PERSON of [facility] this a.m., advised to come to the ED if pain worsened. Denies fever, cough, sore throat, CP, SOB, N/V/D, change in urine change in BM. Medical history is none. Abdominal surgical history is 2. - History of Current Complaint Chief Complaint: EDAbdPain Time Seen by Provider: 04/26/19 22:04 Stated Complaint: ABD PAIN PER PT Hx Obtained From: Patient, Family/Remote Sensing Technician Hx Last Menstrual Period: 3 years ago Onset/Duration: Started Days Ago Timing: Intermittent, Lasting Seconds Severity: Severe Current Severity: Severe Vaginal Bleeding Description: Bright Red, Brownish-Red Pain Intensity: 3 Location of Pain: RLQ, LLQ, Suprapubic, Umbilical Pain Characteristics: Sharp, Cramping Associated Signs and Symptoms: Positive: Abdominal Pain - Allergy/Home Medications Allergies/Adverse Reactions: Allergies Allergy/AdvReac Type Severity Reaction Status Date / Time Adhesive Tape Allergy Rash Verified 04/26/19 21:56 Home Medications: Home Medications Vitamin TAB* 1 tab PO DAILY 04/06/19 [History Confirmed 04/26/19] Acetaminophen TAB* [Tylenol TAB*] 650 mg PO Q4H PRN tab 04/10/19 [Rx Confirmed 04/26/19] Ibuprofen TAB* [Motrin TAB* 600 MG] 600 mg PO Q6H tab 04/10/19 [Rx Confirmed ] oxyCODONE/Acetamin 5/325 MG* [Percocet 5/325 TAB*] 1 tab PO Q6H PRN 2 Days #6 tab MDD 4 tabs 04/26/19 [Rx] PMH/Surg Hx/FS Hx/Imm Hx Endocrine/Hematology History: Denies: Hx Diabetes, Hx Thyroid Disease Cardiovascular History: Denies: Hx Hypertension Respiratory History: Reports: Hx Asthma History: Denies: Hx Kidney Infection, Other Problems/Disorders Musculoskeletal History: Denies: Hx Gout Sensory History: Denies: Hx Eye Prosthesis Opthamlomology History: Denies: Hx Legally Blind EENT History: Denies: Hx Deafness Psychiatric History: Denies: Hx Anxiety, Hx Depression, Other Psychiatric Issues/Disorders - Surgical History Surgery Procedure, Year, and Place: C SECTION Infectious Disease History: No Infectious Disease History: Denies: Traveled Outside the [place] in Last 30 Days - Family History Known Family History: Positive: Cardiac Disease - Social History Alcohol Use: None Substance Use Type: Reports: None Smoking Status (MU): Never Smoked Tobacco Have You Smoked in the Last Year: No Review of Systems Constitutional: Negative Eyes: Negative ENT: Negative Cardiovascular: Negative Respiratory: Negative Positive: Abdominal Pain Genitourinary: Other Musculoskeletal: Negative Skin: Negative Neurological/Mental Status: Negative Psychological: Normal All Other Systems Reviewed And Are Negative: Yes Physical Exam - Summary Physical Exam Summary: Incision site clean and dry and intact. No erythema, purulent discharge. Mildly tender around incision site. Triage Information Reviewed: Yes Vital Signs On Initial Exam: Initial Vitals Temp Pulse Resp BP Pulse Ox 97.4 F 96 18 142/88 98 04/26/19 21:52 04/26/19 21:52 04/26/19 21:52 04/26/19 21:52 04/26/19 21:52 Vital Signs Reviewed: Yes Appearance: Positive: Well-Appearing Skin: Positive: Warm Head/Face: Positive: Normal Head/Face Inspection Eyes: Positive: Normal Neck: Positive: Supple Respiratory/Lung Sounds: Positive: Clear to Auscultation Cardiovascular: Positive: Normal Abdomen Description: Positive: Other: - Tenderness at umbilical area, right side midabdomen. Normal exam of upper abdomen and lower abdomen. Musculoskeletal: Positive: Normal Neurological: Positive: Normal Psychiatric: Positive: Normal AVPU Assessment: Alert - Yao Coma Scale Best Eye Response: 4 - Spontaneous Best Motor Response: 6 - Obeys Commands Best Verbal Response: 5 - Oriented Coma Scale Total: 15 Procedures - Sedation Patient Received Moderate/Deep Sedation with Procedure: No Diagnostics - Vital Signs Vital Signs Temp Pulse Resp BP Pulse Ox 04/26/19 21:52 97.4 F 96 18 142/88 98 - Laboratory Result Diagrams: 04/26/19 22:41 04/26/19 22:41 Lab Statement: Any lab studies that have been ordered have been reviewed, and results considered in the medical decision making process. GIGU Course/Dx - Course Course Of Treatment: Patient with history of by Dr Boucher (PRESS SET UP PERSON [facility]) 17 days ago complains of severe intermittent abdominal cramping and heavy vaginal bleeding 2 days. Abdominal pain described from mid umbilical area radiating down to lower abdomen. Pain described as sharp cramps that lasts for seconds, then completely resolve for about 5-10 minutes, then recur. Pain worse with movement. Not worse with urinating, bowel movement or eating. Patient states use of one pad per 2 hours with bright red and brown blood. Patient evaluated by PRESS SET UP PERSON of [facility] this a.m., advised to come to the ED if pain worsened. Denies fever, cough, sore throat, CP, SOB, N/V/D, change in urine change in BM. Medical history is none. Abdominal surgical history is C- section 2. . Vital signs limits. Labs unremarkable. Urine negative. Transvaginal ultrasound positive for abnormally thickened endometrium versus nonvascular retained products of conception. Discussed patient with PRESS SET UP PERSON manager of distribution Dr. Pinead recommended discharge home with ibuprofen and Rx for Percocet and follow-up with clinic tomorrow. Patient understands and approves of plan. - Diagnoses Provider Diagnoses: cramps, bleeding Discharge ED - Sign-Out/Discharge Documenting (check all that apply): Patient Departure - Discharge Plan Condition: Stable Disposition: HOME Prescriptions: oxyCODONE/Acetamin 5/325 MG* [Percocet 5/325 TAB*] 1 tab PO Q6H PRN 2 Days #6 tab MDD 4 tabs PRN Reason: Pain - Moderate Patient Education Materials: Bleeding (ED) Referrals: Tres Gordon PA [Primary Care Provider] - Jerson Pineda MD [Medical Doctor] - Additional Instructions: Alternate Percocet with ibuprofen 600 mg every 3 hours if needed for pain. Follow-up tomorrow with PRESS SET UP PERSON of [facility]. - Billing Disposition and Condition Condition: STABLE Disposition: Home
[2019-04-26 22:56] LABS: ABS Basophils 0.1 10^3/ul (0-0.2); ABS Eosinophils 0.2 10^3/ul (0-0.6); ABS Lymphocytes 2.7 10^3/ul (1.0-4.8); ABS Monocytes 0.9 10^3/ul (0-0.8); ABS Neutrophils 5.3 10^3/ul (1.5-7.7); Eosinophil % 2.4 %; Hematocrit 38 % (35-47); Hemoglobin 12.2 g/dL (12.0-16.0); Lymphocyte % 29.3 %; Mean Corpuscular HGB Conc 32 g/dL (31-36); Mean Corpuscular Hemoglobin 26 pg (27-31); Mean Corpuscular Volume 82 fL (80-97); Mean Platelet Volume 8.8 fL (7.4-10.4); Platelet Count 288 10^3/uL (150-450); Red Blood Count 4.62 10^6 /uL (3.70-4.87); Red Cell Distribution Width 15 % (10-15); White Blood Count 9.1 10^3/uL (3.5-10.8)
[2019-04-26 23:07] LABS: Albumin 3.9 g/dL (3.2-5.2); Albumin/Globulin Ratio 1.1 (1-3); BUN/Creatinine Ratio 17.1 (8-20); C Reactive Protein 61.88 mg/L (<8.01); Calcium 9.3 mg/dL (8.6-10.3); EGFR African American 102.8 (>60); EGFR Non-African American 84.9 (>60); Globulin 3.4 g/dL (2-4); Potassium 3.7 mmol/L (3.5-5.0); Total Bilirubin 0.4 mg/dL (0.2-1.0); Total Protein 7.3 g/dL (6.4-8.9)
[2019-04-26 23:15] LABS: Urine Appearance Cloudy; Urine Bilirubin Negative (Negative); Urine Blood 3+ (Negative); Urine Color Amber; Urine Glucose Negative (Negative); Urine Ketones Negative (Negative); Urine Nitrite Negative (Negative); Urine Protein 1+(30 mg/dL) (Negative); Urine Specific Gravity 1.033 (1.010-1.030); Urine Urobilinogen Positive (Negative)
[2019-04-26 23:19] LABS: Urine Bacteria Absent (Absent); Urine Red Blood Cell 3+(>10/hpf) (Absent); Urine Squamous Epithelial Cell Present (Absent); Urine White Blood Cell 3+(>20/hpf) (Absent)
[2019-04-26] MEDS ORDERED: Morphine 4 MG/ML VIAL (1 ml) 4 MG/ML VIAL IV ONE (23:20)
[2019-04-26] MEDS ORDERED: NS 0.9% 1000 ML** 1,000 ML IV ONE (23:20)
[2019-04-26] MEDS ORDERED: oxyCODONE/Acetamin 5/325 MG* TAB PO ONE (23:32)
[2019-04-26] MEDS ORDERED: Ibuprofen TAB* 600 MG PO ONE (23:32)
[2019-04-26 23:49] VITALS: BP 115/80
== END 2019-04-26 23:50 | disposition home or self-care (01) ==
LOC: ED 21:51
DX: O72.2 Delayed and secondary postpartum hemorrhage (principal); Z37.0 Single live birth; Z91.048 Other nonmedicinal substance allergy status
CPT/HCPCS: 36415; 76830; 80053; 81003; 81015; 83605; 83690; 85025; 86140; 87086; 99283; A9270-GY